=== PATIENT | female | born 1955 ===

== ENCOUNTER 2017-11-25 08:58 | Outpatient (CLI) | payer OTHER | END 2017-11-25 09:02 | disposition home or self-care (01) | LOC: SONOGRAMA 08:58 | DX: E04.1 Nontoxic single thyroid nodule (principal) ==

== ENCOUNTER 2018-02-12 05:52 | Day surgery (SDC) | payer OTHER ==
[~2018-02-12 05:52] MED LIST: RELAFEN PO; ZANTAC300 MG PO
[2018-02-12] MEDS ORDERED: PERCOCET 5-3251 EACH PO (13:46)
== END 2018-02-12 18:30 | disposition home or self-care (01) ==
LOC: CIR.AMB 05:52
DX: E04.1 Nontoxic single thyroid nodule (principal)